=== PATIENT | female | born 1970 | race Caucasian/White ===

== ENCOUNTER 2020-05-11 16:24 | Outpatient (REF) | payer OTHER, SELFPAY ==
--- NOTE | 2020-05-11 16:35 | XR_ITS ---
EXAMINATION: XR KNEE, RIGHT CLINICAL INFORMATION: Knee pain. Joint effusion. COMPARISON: None TECHNIQUE: Four views of the right knee. FINDINGS: There is a large joint effusion with suprapatellar fossa. No osseous abnormality. No fracture. The patellofemoral the femoral tibial joints are normal. There is no soft tissue calcification. IMPRESSION: Large suprapatellar joint effusion. There is no acute osseous abnormality.
== END 2020-05-11 16:25 | disposition home or self-care (01) ==
LOC: HO.HMGCX 16:24
PROVIDERS: PCP Nurse Practitioner Family; Visit Provider Nurse Practitioner Family
DX: M25.461 Effusion, right knee (principal)
CPT/HCPCS: 73564

== ENCOUNTER 2020-06-08 15:39 | Outpatient (REF) | payer OTHER, SELFPAY ==
--- NOTE | 2020-06-08 15:43 | MR_ITS ---
EXAMINATION: MR KNEE WITHOUT CONTRAST, RIGHT CLINICAL INFORMATION: Pain in the right knee. COMPARISON: Radiograph dated 05/11/2020 TECHNIQUE: MRI of the knee without contrast was performed using routine sequences on a high-field scanner. FINDINGS: MENISCI: Medial Meniscus: There is a complex flap tear of the posterior horn at the posterior root insertion, a high-grade radial component spares only a few attenuated peripheral fibers. The stump flap fragment is displaced cephalad. A horizontal component extends within the posterior horn toward the meniscal body and is confluent with a separate oblique longitudinal/radial component at the junction of the posterior horn and body. The meniscal body is partially extruded medially. Lateral Meniscus: Intact. LIGAMENTS: Cruciate: ACL appears chronically torn. The stump fragments are largely resorbed. PCL is intact. Collateral: Edema signal around the MCL is likely reactive to the underlying meniscal abnormality. A grade 1 sprain is less likely. LCL complex is normal. EXTENSOR MECHANISM: Insall-Salvati ratio is 0.8. Quadriceps and patellar tendons are intact. ARTICULAR CARTILAGE/BONE: Patellofemoral Compartment: Minimal chondral surface irregularity is present at the medial patellar facet and median ridge. Minimal chondral fissuring at the inferior aspect of the medial trochlear facet. Medial Compartment: There is qzqb-ew-zzkiytes chondral thinning at the medial tibial plateau at its medial half with near full-thickness chondral fissuring and underlying subchondral edema. More mild chondral thinning is present at the posterior weightbearing surface of the medial femoral condyle. Lateral Compartment: Normal. JOINT FLUID AND BURSAE: Large joint effusion. Small Mi's cyst. Mild pes anserine bursitis. A small amount of debris is present in the popliteus tendon sheath. MR/MR knee RT wo con IMPRESSION: 1. Complex flap tear of the posterior horn and body of the medial meniscus. 2. A vwwxhjff-so-tibnpph, complete tear of the ACL. 3. Mild medial compartment osteoarthritis. Minimal patellofemoral compartment osteoarthritis. 4. Large effusion and small Mi's cyst.
== END 2020-06-08 15:40 | disposition home or self-care (01) ==
LOC: HO.MRI 15:39
PROVIDERS: Visit Provider Nurse Practitioner Family
DX: M25.561 Pain in right knee (principal); M25.461 Effusion, right knee
CPT/HCPCS: 73721

== ENCOUNTER → 2020-06-10 14:03 | Outpatient (BNVA) | payer OTHER, SELFPAY | PROVIDERS: Visit Provider Orthopaedic Surgery | DX: S83.249A Other tear of medial meniscus, current injury, unspecified knee, initial encounter (principal); M23.8X9 Other internal derangements of unspecified knee; M25.561 Pain in right knee | CPT/HCPCS: 20610; 99202; J1100 ==

== ENCOUNTER 2020-07-14 06:30 | Day surgery (SDC) | payer OTHER, SELFPAY ==
[2020-07-07 19:46] VITALS: BMI 32.3
--- NOTE | 2020-07-13 10:14 | P.CONAN_ITS ---
Documented by User: Kassi Bowles 07/13/20 10:15 HPI - Anesthesia Eval Consult details Narrative: 49yo F for Knee Arthroscopy [facility] Past Medical History Medical History (Updated 07/14/20 @ 11:07 by Zakiya Nicole) Arthritis Elevated liver enzymes EtOH dependence GERD (gastroesophageal reflux disease) Heart murmur Increased BMI Medial meniscus tear Old complete ACL tear Snoring Family History Family History Father No problems noted. Mother Unknown family medical history Sister No problems noted. Sister No problems noted. Sister No problems noted. Daughter No problems noted. 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 Meds Allergies Allergy/AdvReac Type Severity Reaction Status Date / Time No Known Allergies Allergy Verified 07/13/20 09:08 [No Known Allergies*] Home Medications Medication Instructions Recorded Confirmed Type alclometasone [Aclovate] 1 appl TOPICAL BID 07/07/20 07/13/20 History clobetasol 1 appl TOPICAL 2XW 07/07/20 07/13/20 History etanercept [Enbrel] 50 mg SUBCUT 2XW 07/07/20 07/13/20 History Exam Exam Date and Time: July 13, 2020 1014 Height,Weight and Vital Signs: Height 5 ft 6 in Weight 90.718 kg Assessment and Plan Assessment Anesthesia Assessment: Chart Reviewed Documented by User: Zakiya Nicole 07/14/20 11:08 [facility] Past Medical History Medical History (Updated 07/14/20 @ 11:07 by Zakiya Nicole) Arthritis Elevated liver enzymes EtOH dependence GERD (gastroesophageal reflux disease) Heart murmur Increased BMI Medial meniscus tear Old complete ACL tear Snoring Family History Family History Father No problems noted. Mother Unknown family medical history Sister No problems noted. Sister No problems noted. Sister No problems noted. Daughter No problems noted. 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 Meds Allergies Allergy/AdvReac Type Severity Reaction Status Date / Time No Known Allergies Allergy Verified 07/13/20 09:08 [No Known Allergies*] Home Medications Medication Instructions Recorded Confirmed Type alclometasone [Aclovate] 1 appl TOPICAL BID 07/07/20 07/13/20 History clobetasol 1 appl TOPICAL 2XW 07/07/20 07/13/20 History etanercept [Enbrel] 50 mg SUBCUT 2XW 07/07/20 07/13/20 History Exam Height,Weight and Vital Signs: Vital Signs Temp Pulse Resp BP Pulse Ox 07/14/20 07:39 98.2 F 48 L 20 126/69 100 Pertinent Lab Results Pertinent Lab Results: Lab Results 07/14/20 Range/Units 07:16 Urine Test NEGATIVE (NEGATIVE) Airway Mallampati Class: II TM Dist: >3cm Neck ROM: Full Heart: RRR +?murmur Lungs: CTAB Assessment and Plan Assessment Anesthesia Assessment: Anesthesia Plan Discussed and Chart Reviewed Final Anesthetic Review NPO: Yes ASA Class: II Final Preanesthetic Review: No Changes in Pt Med Stat, Meds/Allgs Chart Reviewed, Consent Obtained/Reviewed and Anes Risks/Benef Reviewed Patient Risk: Low Procedure Risk: Low Assessment/Block/Sedation in SS: Assess/Block/Sedation-SS Anesthetic Plan Anesthetic Plan: GA Disposition: Standard PACU
[2020-07-14] VITALS (9 sets, daily range): BP systolic 126–142; BP diastolic 69–87; PULSE 47–78; RESP 14–20; TEMP 36.6–36.8; O2SAT 90–100
[2020-07-14 07:28] LABS: UPreg QC Valid YES; Urine Pregnancy NEGATIVE (NEGATIVE)
[2020-07-14] MEDS: Lactated Ringers 1,000 ML 100 ML IVCONT (07:58)
--- NOTE | 2020-07-14 12:52 | HO.POSTANES ---
Post Anesthesia Evaluation Post Anesthesia Evaluation Vital Signs: Vital Signs Temp Pulse Resp BP Pulse Ox 07/14/20 11:59 97.9 F 47 L 131/75 95 07/14/20 11:44 52 137/76 95 07/14/20 11:29 56 16 137/75 95 07/14/20 11:14 50 16 142/73 H 90 L 07/14/20 11:05 54 16 128/72 94 07/14/20 11:00 67 16 131/71 94 07/14/20 10:55 58 16 138/87 93 07/14/20 10:50 97.9 F 78 14 142/87 H 92 07/14/20 07:39 98.2 F 48 L 20 126/69 100 in discharge HR 60, O2 sat=96% RA Anesthesia: General LMA Mental Status: Awake Pain Control: Satisfactory Nausea/Vomiting: None Hydration: Adequate Anesthesia-Related Issues: No Anes. Related Issues
--- NOTE | 2020-07-15 14:10 | OP_ITS ---
SURGEON: Dony Quintanilla MD INDICATIONS: This is a 49-year-old woman with a chronic ACL tear, who likely injured her MCL several months ago. She complained of medial knee pain and prior to her most recent injury, had been functioning well without an ACL with no giving way. She was consented to undergo knee arthroscopy for medial meniscectomy. We did discuss ACL reconstruction, but deferred on that at this time as per patient preference and concerns over postoperative physical therapy. PREOPERATIVE DIAGNOSIS: POSTOPERATIVE DIAGNOSIS: PROCEDURE PERFORMED: Right knee partial medial meniscectomy. ESTIMATED BLOOD LOSS: None. COMPLICATIONS: None. ANESTHESIA: General and local. ASSISTANTS: None. SPECIMENS: PREOPERATIVE DIAGNOSES: Right knee medial meniscus tear, right knee ACL tear. POSTOPERATIVE DIAGNOSES: Right knee medial meniscus tear, right knee ACL tear. FLUIDS: 500. PROCEDURE IN DETAIL: The patient was brought to the operating room, placed supine on the arthroscopic table and prepped and draped in standard sterile fashion. Time-out was called to identify proper site, proper procedure, proper surgeon. IV antibiotics per weight was administered. I began by exsanguinating the limb and insufflating tourniquet to 300 mmHg. I then made a standard anterolateral stab incision and placed my blunt trocar atraumatically into the patellofemoral joint. I then insufflated the joint and began my diagnostic arthroscopy. She had some very mild grade 1 changes of the patella and trochlea. The gutters were clean. I descended into the medial compartment, where I made my medial portal under direct visualization. She had a complex posteromedial radial meniscus tear with loose flaps. I used a combination of biter and shaver to debride this down to stable edges. This did remove about 40% to 50% of the meniscal volume. I used a probe to assess the stability and finally examined the cartilaginous surfaces. She had grade 2 changes of the medial femoral condyle with some scattered grade 3 changes. There was grade 1 changes of medial tibial plateau. ACL was not present. I debrided the stump, but this appeared chronic and then assessed the lateral compartment, which was essentially pristine. All instrumentation was then removed. Skin glue was used to close the portals and I injected 30 mL of 0.25% Marcaine with epinephrine into the knee and the soft tissue portals. The patient was then placed in sterile dressing, extubated, and brought to recovery room in stable condition. There were no known complications. MD CHRIS Dorman/PRO / [id number]
== END 2020-07-14 23:59 ==
LOC: HO.SSS 06:31
PROVIDERS: Nurse Practitioner; Visit Provider Orthopaedic Surgery
PROC: (CPT 29870; principal; 2020-07-14 08:30)
DX: S83.231A Complex tear of medial meniscus, current injury, right knee, initial encounter (principal); M23.8X1 Other internal derangements of right knee; X50.1XXA Overexertion from prolonged static or awkward postures, initial encounter; Y93.9 Activity, unspecified; Y92.9 Unspecified place or not applicable; Y99.8 Other external cause status; Z91.81 History of falling; F10.20 Alcohol dependence, uncomplicated; K21.9 Gastro-esophageal reflux disease without esophagitis; Z79.899 Other long term (current) drug therapy
CPT/HCPCS: 29881; 81025; J0171; J0690; J1100; J1170; J2250; J2405; J3010

== ENCOUNTER → 2020-07-26 12:04 | Outpatient (BNVA) | payer OTHER, SELFPAY | PROVIDERS: Visit Provider Orthopaedic Surgery | DX: S83.249A Other tear of medial meniscus, current injury, unspecified knee, initial encounter (principal); M23.8X9 Other internal derangements of unspecified knee | CPT/HCPCS: 99212 ==

== ENCOUNTER 2020-08-03 08:41 | Outpatient (REF) | payer OTHER, SELFPAY ==
[2020-08-03 11:55] LABS: Alanine Aminotransferase 70 U/L (0-31); Albumin Level 4.5 g/dL (3.5-5.0); Alkaline Phosphatase 74 U/L (39-117); Anion Gap 18 (12-20); Aspartate Amino Transferase 76 U/L (5-31); Bilirubin Total 0.7 mg/dL (0.0-1.0); Blood Urea Nitrogen 11 mg/dL (9-16); Calcium 9.3 mg/dL (8.4-10.2); Carbon Dioxide 23 mmol/L (22-29); Chloride 100 mmol/L (96-108); Cholesterol 280 mg/dL; Estimated Glomerular Filt Rate > 60; Glucose Fasting 103 mg/dL (60-99); HDL Cholesterol 71 mg/dL; LDL Cholesterol Calculated 131 mg/dl; Potassium 3.8 mmol/l (3.3-5.1); Sodium 137 mmol/L (135-145); Total Protein 7.7 g/dL (6.5-8.0); Triglycerides 394 mg/dL
[2020-08-03 12:00] LABS: TSH reflex Free T4 5.05 mIU/mL (0.32-4.0)
[2020-08-03 12:49] LABS: Free T4 (Free Thyroxine) 0.92 ng/dL (0.71-1.85)
== END 2020-08-03 08:42 | disposition home or self-care (01) ==
LOC: HO.HMGCLDS 08:41
PROVIDERS: PCP Nurse Practitioner Family; Visit Provider Nurse Practitioner Family
DX: Z00.00 Encounter for general adult medical examination without abnormal findings (principal)
CPT/HCPCS: 36415; 80053; 80061; 84439; 84443

== ENCOUNTER 2020-08-11 08:02 | Outpatient (REF) | payer OTHER, SELFPAY ==
--- NOTE | 2020-08-11 08:07 | MM_ITS ---
EXAMINATION: MM SCREENING DIGITAL BREAST TOMOSYNTHESIS, BILATERAL CLINICAL INFORMATION: Screening. Asymptomatic. The lifetime risk of breast cancer based on the Tyrer-Cuzick Model is 11%. COMPARISON: Mammography: 08/06/2019, 06/15/2017, 02/06/2014 TECHNIQUE: Digital breast tomosynthesis is performed in both the craniocaudal and mediolateral oblique views along with computer-aided detection (CAD). Synthesized 2D images are generated from the tomosynthesis. Additional left MLO view is provided. FINDINGS: There are scattered areas of fibroglandular density (ACR BI-RADS breast composition Category b). There is a oval nodular asymmetry mid outer right breast approximately 6 x 4 mm breast appreciated on CC tomography. There is no visible correlate on MLO view. Finding not seen with certainty on prior studies. Patient will be recalled for additional imaging. The remainder of the bilateral breasts are unremarkable with no significant mass, architectural abnormality, developing density, or abnormal calcifications. The skin contours are smooth. MM/MM tomosynthesis screening BI IMPRESSION: 1. Right: Smooth nodular asymmetry mid outer right breast on CC view not seen with certainty on prior studies. 2. Left: No mammographic evidence of malignancy. ASSESSMENT: BI-RADS 0: Incomplete - Need Additional Imaging Evaluation RECOMMENDATION: 1. Additional views of the right breast (3-D spot CC, 3-D ML). 2. Targeted ultrasound if warranted after review of the additional views. 3. Radiology department staff will contact the patient for additional imaging. This patient's information was entered into a reminder system with a target due date for their next mammogram.
== END 2020-08-11 08:03 | disposition home or self-care (01) ==
LOC: HO.MAMMO 08:02
PROVIDERS: PCP Nurse Practitioner Family; Visit Provider Nurse Practitioner Family
DX: Z12.31 Encounter for screening mammogram for malignant neoplasm of breast (principal)
CPT/HCPCS: 77063; 77067

== ENCOUNTER 2020-08-11 09:51 | Outpatient (REF) | payer OTHER, SELFPAY ==
--- NOTE | 2020-08-11 09:54 | US_ITS ---
EXAMINATION: US ABDOMEN COMPLETE CLINICAL INFORMATION: Abnormal levels of other serum enzymes. COMPARISON: Ultrasound abdomen complete 03/27/2017 TECHNIQUE: Real-time imaging of the abdominal viscera. FINDINGS: PANCREAS: Normal. ABDOMINAL AORTA: The proximal, mid, and distal segments are normal in caliber. INFERIOR VENA CAVA: Visualized portions are normal. LIVER: There is diffuse liver increased echogenicity with areas of focal fatty sparing adjacent to gallbladder. There is normal hepatic contour and mild enlarged size. There is no intrahepatic biliary duct dilatation seen. The right hepatic lobe measures 20.0 cm and the left hepatic lobe measures 16.1 cm. GALLBLADDER: Normal. The gallbladder is physiologically distended without evidence of stones, sludge, polyps, wall thickening or pericholecystic fluid. COMMON BILE DUCT: Normal in caliber measuring 0.3 cm in diameter. RIGHT KIDNEY: Normal. No hydronephrosis. No renal calculi or focal parenchymal lesions. The kidney measures 11.5 cm in maximum dimension. LEFT KIDNEY: Normal. No hydronephrosis. No renal calculi or focal parenchymal lesions. The kidney measures 11.7 cm in maximum dimension. SPLEEN: Normal. The spleen measures 10.2 cm in maximum dimension. FREE FLUID: None. US/US abdomen complete IMPRESSION: Diffuse hepatic steatosis with areas of focal fatty sparing. Mild hepatomegaly. The rest of the abdominal ultrasound is unremarkable.
== END 2020-08-11 09:52 | disposition home or self-care (01) ==
LOC: HO.HMGCX 09:51
PROVIDERS: PCP Nurse Practitioner Family; Visit Provider Nurse Practitioner Family
DX: R74.8 Abnormal levels of other serum enzymes (principal)
CPT/HCPCS: 76700

== ENCOUNTER → 2020-08-16 14:47 | Outpatient (REF) | payer OTHER, SELFPAY ==
--- NOTE | 2020-08-16 14:50 | CA_ITS ---
Transthoracic Echocardiogram Patient (Last, First, Middle): Deisy Marie, Gender: Female Date of : 1970 Age: 49 Procedure Date: 08/16/2020 Procedure Type: Transthoracic Echocardiogram Location: OP Height: 167.64 cm Weight: 90.72 kg BSA: 2.00 m2 Heart Rate: bpm BP: 126 / 80 mmHg Dietetics Director: Referring MD: Javi Gerardo [facility] Symptoms: R01.1 - Cardiac murmur, unspecified Study Quality: Fair ECG Rhythm: Sinus Conclusions: - The left ventricular systolic function is normal. The visually estimated ejection fraction is between 65-70%. - No obvious valvular pathology seen on this study. Findings Left Ventricle Normal left ventricular cavity size. There is normal left ventricular wall thickness. The left ventricular systolic function is normal. The visually estimated ejection fraction is between 65-70%. There is no evidence of regional wall motion abnormalities. Diastolic function is normal for age. Right Ventricle Normal right ventricular cavity size and systolic function. Atria Both atria are normal in size. Aortic Valve The aortic valve was not well visualized. There is no aortic valve stenosis. There is no aortic valve regurgitation. Mitral Valve The mitral valve appears normal. There is no mitral valve regurgitation. There is no mitral valve stenosis. Pulmonic Valve The pulmonic valve was not well visualized. Tricuspid Valve There is trace tricuspid valve regurgitation. The pulmonary artery systolic pressure is normal. Great Vessels The aortic annulus, sinuses of valsalva, and asc aorta are normal in size. Venous The inferior vena cava is normal in size and collapses greater than 50% with inspiration. Pericardium/Pleural There is no evidence of pericardial effusion. Prior Study Comparison No prior study available for comparison. Recommendations, Care & Conclusions No obvious valvular pathology seen on this study. Measurements 2D Linear Measurements IVSd: 0.92 0.6-0.9/0.6-1.0 cm LVIDd: 5.14 3.9-5.3/4.2-5.9 cm LVIDd Index: 2.57 2.4-3.2/2.2-3.1 cm/m2 LVIDs: 3.15 2.0-3.6 cm LVPWd: 0.88 0.7-1.1 cm Ao Root: 2.70 2.1-3.5 cm LA Diam: 3.90 2.7-3.8/3.0-4.0 cm LAIDs Index: 1.95 1.5-2.3 cm/m2 LV Mass: 205.80 67-162/88-224 g LV Mass Index: 102.90 43-95/49-115 g/m2 LVOT Diam: 2.00 3.0+(-)1.3 cm Mitral Valve MV Pk E: 0.92 MV PK A: 0.77 MV Decel Time: 216.00 E/A: 1.20 E'Lateral: 9.96 E'Medial: 7.11 E/E' Med: 13.00 E/E' Lat: 9.30 PHT: 63.00 MVA PHT: 3.49 Decel [place]: 4.26 Aortic Valve AoV Pk Nabeel: 1.89 AoV Mn Nabeel: 1.20 AoV VTI: 0.36 AoV Pk Grad: 14.00 Aov Mn Grad: 7.00 DMITRY Cont.VTI: 2.51 LVOT LVOT Pk Nabeel: 1.39 LVOT Mn Nabeel: 0.86 LVOT VTI: 0.29 LVOT Pk Grad: 8.00 LVOT Mn Grad: 4.00 LVOT Diam: 2.00 LVOT Area: 3.14 Diastolic Function MV Pk E: 0.92 MV Pk A: 0.77 E/A: 1.20 E'Medial: 7.11 E/E' Med: 13.00 E' Laterial: 9.96 E/E' Lat: 9.30 Tricuspid Valve TR Pk Nabeel: 1.57 TR Pk Grad: 10.00 RA Press: 3.00 RVSP: 13.00 Great Vessels Aorta Ao Root-2D: 2.70 2.0-3.7 cm Ao Asc: 3.30 2.1-3.4 cm Pulmonary Valve PV Pk Nabeel: 1.29 Peak PV Grad: 7.00 Updated in Other Vendor System with Status of Final Sonny Casper MD electronically signed on 08/16/2020 4:58:18 PM with status of Final
== END ==
LOC: HO.CARD 14:47
PROVIDERS: PCP Nurse Practitioner Family; Visit Provider Nurse Practitioner Family
DX: R01.1 Cardiac murmur, unspecified (principal)
CPT/HCPCS: 93306

== ENCOUNTER 2020-08-19 09:25 | Outpatient (REF) | payer OTHER, SELFPAY ==
--- NOTE | 2020-08-19 | MM_ITS ---
EXAMINATION: MM DIAGNOSTIC DIGITAL BREAST TOMOSYNTHESIS, RIGHT US TARGETED RIGHT BREAST ULTRASOUND CLINICAL INFORMATION: Rounded density upper outer aspect of the right breast containing calcification. COMPARISON: Mammography: 08/11/2020 and studies dating back to 02/06/2014. TECHNIQUE: Digital breast tomosynthesis is performed. 2D images are generated from the tomosynthesis. The following views are obtained: Full-field 90-degree mediolateral view of the right breast and spot compression view in craniocaudal projection. Targeted right breast ultrasound. FINDINGS: There are scattered areas of fibroglandular density (ACR BI-RADS breast composition Category b). Additional views demonstrate persistence of an approximately 5 x 4 mm circumscribed density containing a calcification in the upper outer aspect of the right breast. This lies approximately 7 to 8 cm from the nipple. Targeted right breast ultrasound demonstrates at the 10 o'clock position, approximately 7 cm from the nipple a cyst measuring approximately 5 x 3 mm in size containing a single calcification. No internal vascularity is present. The lesion is anechoic other than for the single calcification. Results are discussed with the patient at time of visit. MM/MM tomosynthesis added views R IMPRESSION: Right breast density corresponds to a cyst containing a single calcification. ASSESSMENT: BI-RADS 2: Benign. RECOMMENDATION: Routine annual mammography screening due in 12 months. This patient's information was entered into a reminder system with a target due date for their next mammogram.
--- NOTE | 2020-08-19 | US_ITS ---
EXAMINATION: US DIAGNOSTIC ULTRASOUND BREAST, RIGHT CLINICAL INFORMATION: Right breast density with calcification. COMPARISON: Mammography of 08/11/2020 and studies dating back to 02/06/2014. TECHNIQUE: Ultrasound of the breast is performed with real-time riley scale imaging and color Doppler. FINDINGS: Targeted right breast ultrasound demonstrates at the 10 o'clock position, approximately 7 cm from the nipple a cyst measuring approximately 5 x 3 mm in size containing a single calcification. No internal vascularity is present. The lesion is anechoic other than for the single calcification. Results are discussed with the patient at time of visit. US/US breast RT limited IMPRESSION: Right breast density corresponds to a cyst containing a single calcification. ASSESSMENT: BI-RADS 2: Benign. RECOMMENDATION: Routine annual mammography screening due in 12 months. This patient's information was entered into a reminder system with a target due date for their next mammogram.
== END 2020-08-19 09:26 | disposition home or self-care (01) ==
LOC: HO.MAMMO 09:25
PROVIDERS: PCP Nurse Practitioner Family; Visit Provider Nurse Practitioner Family
DX: N60.01 Solitary cyst of right breast (principal)
CPT/HCPCS: 76642; 77061; 77065

== ENCOUNTER → 2020-08-30 08:58 | Outpatient (BNVA) | payer OTHER, SELFPAY | PROVIDERS: PCP Nurse Practitioner Family; Visit Provider Orthopaedic Surgery | DX: S83.249D Other tear of medial meniscus, current injury, unspecified knee, subsequent encounter (principal) | CPT/HCPCS: 99212 ==

== ENCOUNTER 2020-09-24 09:00 | Outpatient (RCR) | payer OTHER, SELFPAY ==
--- NOTE | 2020-11-11 13:18 | MHC.PT.DC ---
[facility] [place] Office [place] Office [place] Office [address] Jelly Redmond [address] [facility] [phone] F: [phone] F: [phone] F: [phone] F: [phone] Physical Therapy Discharge Report Diagnosis: s/p meniscectomy Date of Surgery: 07/14/20 Date of Evaluation: 07/27/20 Date of Discharge: 10/17/20 Treatments to Date: 13 Cancellations to Date: 0 No Shows to Date: 0 Discharge Status: Achieved Goals Improved Function Independent with [facility] Discharge Summary: Pt progressed well over the course of skilled PT making progress on impairments and functional limitations resulting in an improved quality of life. Pt is I with [facility] and appropriate to d/c to [facility] at this time. Electronically signed by: Randy Turner, PT Please sign and return to therapist. Thank you for your referral.
== END 2020-11-11 13:18 | disposition home or self-care (01) ==
LOC: HO.PTCHIC 09:00
PROVIDERS: PCP Nurse Practitioner Family; Visit Provider Orthopaedic Surgery
DX: S83.249D Other tear of medial meniscus, current injury, unspecified knee, subsequent encounter (principal)
CPT/HCPCS: 97110; 97112; 97162; 97530

== ENCOUNTER 2021-03-23 08:36 | Outpatient (REF) | payer OTHER, SELFPAY ==
--- NOTE | 2021-03-23 08:42 | EMG_ITS ---
This is a 50-year-old woman with a 3-year history of right upper extremity pain, neck pain, and pain radiating to the right deltoid area. She is currently on no medication for this. PHYSICAL EXAMINATION: On examination, she is alert and oriented, appears very anxious and crying. Cranial nerves II through XII are normal. She has been on neck movements. Reflexes symmetrical. IMPRESSION: Rule out cervical radiculopathy. Nerve conduction study: Normal electrodiagnostic study of the right upper extremity with no evidence of carpal tunnel syndrome or nerve entrapment. EMG of the right C5 through T1 innervated muscles suggestive of mild right lower chronic cervical radiculopathy. MD NICOLE Schumacher/PRO / [id number]
== END 2021-03-23 08:37 | disposition home or self-care (01) ==
LOC: HO.NEURO 08:36
PROVIDERS: Visit Provider Hospitalist
DX: M54.12 Radiculopathy, cervical region (principal)
CPT/HCPCS: 95886; 95910

== ENCOUNTER 2021-05-16 16:36 | Outpatient (REF) | payer OTHER, SELFPAY ==
--- NOTE | ~2021-05-16 | MR_ITS ---
EXAMINATION: MR CERVICAL SPINE WITHOUT CONTRAST CLINICAL INFORMATION: Radiculopathy, cervical region. COMPARISON: None available. TECHNIQUE: MRI of the cervical spine was performed using routine sequences without contrast. FINDINGS: The cervical vertebral bodies maintain normal heights and alignment. There is minimal anterolisthesis of C3 on C4 and C4 on C5. There is moderate to severe disc height loss at C5-C6 and C6-C7. Mild endplate edema is seen at C6-C7. There is significant marrow edema about the left-sided C3-C4 facets and within the periarticular tissues. The cervical cord signal appears normal allowing for minimal prominence of the central ependymal canal. The imaged portions of the intracranial contents appear normal. The extraspinal soft tissues appear normal. SPINAL LEVELS: C2-C3: No posterior disc abnormality. Moderate left facet arthropathy. No spinal canal or neural foraminal stenosis. C3-C4: No posterior disc abnormality. Severe left facet arthropathy with marrow and periarticular edema. No spinal canal stenosis. Mild left neural foraminal stenosis. C4-C5: Mild disc bulging. No spinal canal or neural foraminal stenosis. C5-C6: Disc bulging with left more than right uncovertebral hypertrophy resulting in severe left and [id number] right neural foraminal stenosis but no spinal canal stenosis. C6-C7: Disc osteophyte complex with uncovertebral hypertrophy resulting in severe bilateral neural foraminal stenosis. No spinal canal stenosis. C7-T1: No posterior disc abnormality. No spinal canal or neural foraminal stenosis. MR/MR cervical spine wo con IMPRESSION: Severe left facet arthropathy at C3-C4 with bone marrow edema and subjacent soft tissue inflammation. At C5-C6 there is severe left neural foraminal stenosis. At C6-C7 there is severe bilateral neural foraminal stenosis.
== END 2021-05-16 16:37 | disposition home or self-care (01) ==
LOC: HO.MRI 16:36
PROVIDERS: Visit Provider Nurse Practitioner Family
DX: M54.12 Radiculopathy, cervical region (principal); R94.131 Abnormal electromyogram [EMG]
CPT/HCPCS: 72141

== ENCOUNTER 2021-07-29 12:16 | Outpatient (REF) | payer OTHER, SELFPAY ==
[2021-07-29 15:23] LABS: MANUAL DIFF FLAG NO
[2021-07-29 15:25] LABS: Basophils Percent Auto 0.5 % (0-2); Eosinophils Absolute Auto 0.1 X10*3/uL (0.0-0.4); Eosinophils Percent Auto 1.4 % (0-4); Hematocrit 44.2 % (37.0-47.0); Hemoglobin 14.6 g/dl (12.0-16.0); Imm Gran Abs Auto 0.02 X10*3/uL (0.00-0.03); Imm Gran Pct Auto 0.3 % (0.0-0.4); Lymphocytes Absolute Auto 2.3 X10*3/uL (1.2-4.9); Mean Corpuscular Hemoglobin 30.2 pg (27.0-33.0); Mean Corpuscular Volume 91.3 fL (80.0-98.0); Mean Platelet Volume 10.9 fL (9.4-12.3); Monocytes Absolute Auto 0.5 X10*3/uL (0.1-1.2); Monocytes Percent Auto 9.3 % (2-11); Neutrophils Absolute Auto 2.9 x10*3/uL (2.0-8.3); Neutrophils Percent Auto 49.5 % (45-73); Platelet Count 269 X10*3/uL (160-400); Red Blood Count 4.84 X10*6/uL (4.20-5.50); Red Cell Distribution Width 12.8 % (11.0-16.0); White Blood Count 5.8 X10*3/uL (4.8-10.8)
[2021-07-29 15:44] LABS: Alanine Aminotransferase 25 U/L (0-31); Albumin Level 4.6 g/dL (3.5-5.0); Alkaline Phosphatase 78 U/L (39-117); Anion Gap 13 (12-20); Aspartate Amino Transferase 24 U/L (5-31); Bilirubin Total 0.5 mg/dL (0.0-1.0); Blood Urea Nitrogen 14 mg/dL (9-16); Calcium 9.7 mg/dL (8.4-10.2); Carbon Dioxide 27 mmol/L (22-29); Chloride 101 mmol/L (96-108); Estimated Glomerular Filt Rate > 60; Glucose Random 82 mg/dL (60-115); Potassium 4.1 mmol/L (3.3-5.1); Sodium 137 mmol/L (135-145); Total Protein 8.1 g/dL (6.5-8.0)
== END 2021-07-29 12:17 | disposition home or self-care (01) ==
LOC: HO.HMGCLDS 12:16
PROVIDERS: PCP Nurse Practitioner Family; Visit Provider Physician Assistant Medical
DX: L40.0 Psoriasis vulgaris (principal); L30.8 Other specified dermatitis; Z79.899 Other long term (current) drug therapy
CPT/HCPCS: 36415; 80053; 85025

== ENCOUNTER 2021-12-07 06:04 | Outpatient (REF) | payer OTHER, SELFPAY ==
[2021-12-07 11:40] LABS: MANUAL DIFF FLAG NO
[2021-12-07 11:47] LABS: Basophils Percent Auto 0.6 % (0-2); Eosinophils Absolute Auto 0.1 X10*3/uL (0.0-0.4); Eosinophils Percent Auto 2.7 % (0-4); Hematocrit 42.2 % (37.0-47.0); Hemoglobin 13.4 g/dl (12.0-16.0); Imm Gran Abs Auto 0.01 X10*3/uL (0.00-0.03); Imm Gran Pct Auto 0.2 % (0.0-0.4); Lymphocytes Absolute Auto 1.9 X10*3/uL (1.2-4.9); Lymphocytes Percent Auto 36.3 % (20-40); Mean Corpuscular HGB Conc 31.8 g/dl (31.0-35.0); Mean Corpuscular Hemoglobin 28.8 pg (27.0-33.0); Mean Corpuscular Volume 90.8 fL (80.0-98.0); Monocytes Absolute Auto 0.6 X10*3/uL (0.1-1.2); Monocytes Percent Auto 12.1 % (2-11); Neutrophils Absolute Auto 2.5 x10*3/uL (2.0-8.3); Neutrophils Percent Auto 48.1 % (45-73); Platelet Count 289 X10*3/uL (160-400); Red Blood Count 4.65 X10*6/uL (4.20-5.50); Red Cell Distribution Width 12.9 % (11.0-16.0); White Blood Count 5.1 X10*3/uL (4.8-10.8)
[2021-12-07 11:52] LABS: Appearance Urine HAZY; Color Urine YELLOW; Glucose Urine UA NEG (NEG); Leukocyte Esterase Urine NEG (NEG); Nitrite Urine NEG (NEG); Specific Gravity - Urine >= 1.030 (1.005-1.025); Urine Blood NEG (NEG); Urine Ketones NEG (NEG); Urine Protein NEG (NEG-TRACE)
[2021-12-07 12:16] LABS: TSH reflex Free T4 4.28 uIU/mL (0.32-4.0)
[2021-12-07 12:17] LABS: Alanine Aminotransferase 29 U/L (0-31); Albumin Level 4.1 g/dL (3.5-5.0); Alkaline Phosphatase 70 U/L (39-117); Anion Gap 11 (12-20); Aspartate Amino Transferase 30 U/L (5-31); Bilirubin Total 0.5 mg/dL (0.0-1.0); Blood Urea Nitrogen 16 mg/dL (9-16); Calcium 9.6 mg/dL (8.4-10.2); Carbon Dioxide 27 mmol/L (22-29); Chloride 104 mmol/L (96-108); Cholesterol 212 mg/dL; Estimated Glomerular Filt Rate > 60; Glucose Fasting 108 mg/dL (60-99); HDL Cholesterol 59 mg/dL; LDL Cholesterol Calculated 127 mg/dl; Potassium 4.4 mmol/L (3.3-5.1); Sodium 138 mmol/L (135-145); Total Protein 6.9 g/dL (6.5-8.0); Triglycerides 133 mg/dL
[2021-12-07 13:10] LABS: Free T4 (Free Thyroxine) 0.87 ng/dL (0.71-1.85)
[2021-12-09 15:01] LABS: TS Negative Control Passed; TS Panel A 0; TS Panel B 0; TS Positive Control Passed; TSpotTB Negative (Negative)
== END 2021-12-07 06:05 | disposition home or self-care (01) ==
LOC: HO.HMGCLDS 06:04
PROVIDERS: PCP Nurse Practitioner Family; Visit Provider Nurse Practitioner Family
DX: Z00.00 Encounter for general adult medical examination without abnormal findings (principal); Z11.1 Encounter for screening for respiratory tuberculosis
CPT/HCPCS: 36415; 80053; 80061; 81003; 84439; 84443; 85025; 86481

== ENCOUNTER 2021-12-09 15:40 | Outpatient (REF) | payer OTHER, SELFPAY ==
--- NOTE | ~2021-12-09 | MM_ITS ---
EXAMINATION: MM SCREENING DIGITAL BREAST TOMOSYNTHESIS, BILATERAL CLINICAL INFORMATION: Screening. Asymptomatic. The lifetime risk of breast cancer based on the Tyrer-Cuzick Model is 12%. COMPARISON: Mammography: 08/19/2020, 08/11/2020, 08/06/2019, 06/15/2017, 02/06/2014; targeted right breast ultrasound 08/19/2020 TECHNIQUE: Digital breast tomosynthesis is performed in both the craniocaudal and mediolateral oblique views along with computer-aided detection (CAD). Synthesized 2D images are generated from the tomosynthesis. Additional right MLO view is provided. FINDINGS: There are scattered areas of fibroglandular density (ACR BI-RADS breast composition Category b). The left breast is unremarkable. There is no interval mass or architectural abnormality or abnormal calcifications. The bilateral axilla and skin contours are normal. There is a benign oval coarse calcification mid upper outer right breast in area of prior small cyst. There is no interval mass or architectural abnormality or developing density. The posterior upper outer right breast has some fine calcifications, possibly vascular along with pseudo calcification from digital processing artifact on synthesized images. This is unrelated to area of prior recall. Patient will be recalled for additional imaging. MM/MM tomosynthesis screening BI IMPRESSION: Right: -Fine calcifications upper outer quadrant, possibly vascular along with additional superimposed pseudo calcification from digital processing artifact on synthesized images. Left: -No mammographic evidence of malignancy. ASSESSMENT: BI-RADS 0: Incomplete - Need Additional Imaging Evaluation RECOMMENDATION: 1. Additional views of the right breast (magnification CC, magnification ML). 2. Radiology department staff will contact the patient for additional imaging. This patient's information was entered into a reminder system with a target due date for their next mammogram.
== END 2021-12-09 15:41 | disposition home or self-care (01) ==
LOC: HO.MAMMO 15:40
PROVIDERS: PCP Nurse Practitioner Family; Visit Provider Nurse Practitioner Family
DX: Z12.31 Encounter for screening mammogram for malignant neoplasm of breast (principal)
CPT/HCPCS: 77063; 77067

== ENCOUNTER 2021-12-20 13:53 | Outpatient (REF) | payer OTHER, SELFPAY ==
--- NOTE | ~2021-12-20 | MM_ITS ---
EXAMINATION: MM DIAGNOSTIC DIGITAL MAMMOGRAPHY, RIGHT CLINICAL INFORMATION: Recall from screening for calcifications upper outer right breast. COMPARISON: Mammography: 12/09/2021, 08/19/2020, 08/11/2020, 08/06/2019 TECHNIQUE: Digital mammography is performed in the following views: Magnification CC, magnification ML. FINDINGS: There are scattered areas of fibroglandular density (ACR BI-RADS breast composition Category b). The additional magnification views confirm 2 tight groups of new round calcifications posterior upper outer right breast. They have a probable benign appearance and will be reassessed again in 6 months. Results are provided to the patient at time of visit by the technologist. MM/MM added views RT IMPRESSION: There are 2 new tight groups of probable benign round calcifications posterior upper outer right breast. ASSESSMENT: BI-RADS 3: Probably Benign RECOMMENDATION: Diagnostic right mammography in 6 months. This patient's information was entered into a reminder system with a target due date for their next mammogram.
== END 2021-12-20 13:54 | disposition home or self-care (01) ==
LOC: HO.MAMMO 13:53
PROVIDERS: PCP Nurse Practitioner Family; Visit Provider Nurse Practitioner Family
DX: R92.1 Mammographic calcification found on diagnostic imaging of breast (principal)
CPT/HCPCS: 77065

== ENCOUNTER 2022-01-25 07:27 | Outpatient (REF) | payer OTHER, SELFPAY ==
--- NOTE | ~2022-01-25 | US_ITS ---
EXAMINATION: US PELVIS, LIMITED/FOLLOW UP CLINICAL INFORMATION: Abdominal wall, pain area. COMPARISON: None TECHNIQUE: Limited ultrasound imaging through the abdominal wall is performed. FINDINGS: There is no visible mass, free fluid or increased vascularity in the area of anterior abdominal wall there is was performed. A prominent vessel, nonspecific seen in the left lower quadrant in the area of pain where patient complains the most.. US/US pelvic limited IMPRESSION: Grossly unremarkable limited abdomen ultrasound where patient complains of pain.
== END 2022-01-25 07:28 | disposition home or self-care (01) ==
LOC: HO.US 07:27
PROVIDERS: Visit Provider Physician Assistant Medical
DX: R10.32 Left lower quadrant pain (principal)
CPT/HCPCS: 76857

== ENCOUNTER 2022-06-02 13:38 | Outpatient (REF) | payer OTHER, SELFPAY ==
[2022-06-02 16:23] LABS: MANUAL DIFF FLAG NO
[2022-06-02 16:27] LABS: Appearance Urine Clear; Color Urine Yellow; Glucose Urine UA Negative (Negative); Leukocyte Esterase Urine Negative (Negative); Nitrite Urine Negative (Negative); PH 5.5 (5.0-9.0); Specific Gravity - Urine <= 1.005 (1.005-1.025); Urine Blood Negative (Negative); Urine Ketones Negative (Negative); Urine Protein Negative (Neg-Trace)
[2022-06-02 16:30] LABS: Basophils Absolute Auto 0.1 X10*3/uL (0.0-0.2); Basophils Percent Auto 0.6 % (0-2); Eosinophils Absolute Auto 0.1 X10*3/uL (0.0-0.4); Eosinophils Percent Auto 1.5 % (0-4); Hematocrit 39.7 % (37.0-47.0); Hemoglobin 13.3 g/dl (12.0-16.0); Imm Gran Abs Auto 0.03 X10*3/uL (0.00-0.03); Imm Gran Pct Auto 0.3 % (0.0-0.4); Mean Corpuscular HGB Conc 33.5 g/dl (31.0-35.0); Mean Corpuscular Volume 89.6 fL (80.0-98.0); Mean Platelet Volume 11.4 fL (9.4-12.3); Monocytes Absolute Auto 0.8 X10*3/uL (0.1-1.2); Monocytes Percent Auto 8.4 % (2-11); Neutrophils Absolute Auto 5.3 x10*3/uL (2.0-8.3); Neutrophils Percent Auto 57.2 % (45-73); Platelet Count 275 X10*3/uL (160-400); Red Blood Count 4.43 X10*6/uL (4.20-5.50); White Blood Count 9.3 X10*3/uL (4.8-10.8)
[2022-06-02 16:39] LABS: Alanine Aminotransferase 51 U/L (0-31); Albumin Level 4.5 g/dL (3.5-5.0); Alkaline Phosphatase 86 U/L (39-117); Aspartate Amino Transferase 37 U/L (5-31); Bilirubin Direct 0.4 mg/dL (0.0-0.5); Bilirubin Total 0.9 mg/dL (0.0-1.0); Total Protein 7.5 g/dL (6.5-8.0)
[2022-06-02 16:40] LABS: Alanine Aminotransferase 51 U/L (0-31); Albumin Level 4.5 g/dL (3.5-5.0); Alkaline Phosphatase 86 U/L (39-117); Anion Gap 19 (12-20); Aspartate Amino Transferase 36 U/L (5-31); Bilirubin Total 0.9 mg/dL (0.0-1.0); Blood Urea Nitrogen 14 mg/dL (9-16); Calcium 9.7 mg/dL (8.4-10.2); Carbon Dioxide 21 mmol/L (22-29); Chloride 100 mmol/L (96-108); Cholesterol 194 mg/dL; Estimated Glomerular Filt Rate > 60; Glucose Fasting 80 mg/dL (60-99); HDL Cholesterol 62 mg/dL; LDL Cholesterol Calculated 105 mg/dl; Potassium 3.8 mmol/L (3.3-5.1); Sodium 136 mmol/L (135-145); Total Protein 7.5 g/dL (6.5-8.0); Triglycerides 138 mg/dL
[2022-06-02 17:01] LABS: TSH reflex Free T4 2.95 uIU/mL (0.32-4.0)
== END 2022-06-02 13:39 | disposition home or self-care (01) ==
LOC: HO.HMGCLDS 13:38
PROVIDERS: Absent Provider Physician Assistant Medical; PCP Nurse Practitioner Family; Visit Provider Nurse Practitioner Family
DX: L40.0 Psoriasis vulgaris (principal); L30.8 Other specified dermatitis; E78.5 Hyperlipidemia, unspecified; Z79.899 Other long term (current) drug therapy
CPT/HCPCS: 36415; 80053; 80061; 80076; 81003; 82248; 84443; 85025

== ENCOUNTER 2022-06-27 14:45 | Outpatient (REF) | payer OTHER, SELFPAY ==
--- NOTE | ~2022-06-27 | MM_ITS ---
EXAMINATION: MM DIAGNOSTIC DIGITAL BREAST TOMOSYNTHESIS, RIGHT CLINICAL INFORMATION: Short interval six-month follow-up probable benign calcifications posterior upper outer right breast. The lifetime risk of breast cancer based on the Tyrer-Cuzick Model is 12%. COMPARISON: Mammography: 12/20/2021, 12/09/2021 (BI-RADS 0), 08/19/2020, 08/11/2020 TECHNIQUE: Digital breast tomosynthesis is performed in both the craniocaudal and mediolateral oblique views along with computer-aided detection (CAD). Synthesized 2D images are generated from the tomosynthesis. Additional magnification right CC and magnification right ML views are obtained. FINDINGS: There are scattered areas of fibroglandular density (ACR BI-RADS breast composition Category b). Parenchymal pattern is similar to prior studies. There is no interval mass or architectural abnormality or developing density. The axilla and skin contours are unremarkable. The small round calcifications for follow-up posterior upper outer right breast are slightly decreased. There are no increasing calcifications or ductal distribution. Calcifications will be reassessed again at time of annual bilateral mammography, due in 6 months. Results are provided to the patient at time of visit by the technologist. MM/MM tomosynthesis diagnostic RT IMPRESSION: -Fine round calcifications posterior upper outer right breast appear decreased. No significant change. -No mammographic evidence of malignancy. ASSESSMENT: BI-RADS 3: Probably Benign RECOMMENDATION: Diagnostic mammography at time of annual bilateral exam, due in 6 months. This patient's information was entered into a reminder system with a target due date for their next mammogram.
== END 2022-06-27 14:46 | disposition home or self-care (01) ==
LOC: HO.MAMMO 14:45
PROVIDERS: PCP Nurse Practitioner Family; Visit Provider Nurse Practitioner Family
DX: R92.1 Mammographic calcification found on diagnostic imaging of breast (principal)
CPT/HCPCS: 77061; 77065

== ENCOUNTER 2022-12-02 10:47 | Outpatient (REF) | payer OTHER, SELFPAY ==
[2022-12-02 13:25] LABS: MANUAL DIFF FLAG NO
[2022-12-02 13:30] LABS: Basophils Absolute Auto 0.1 X10*3/uL (0.0-0.2); Basophils Percent Auto 0.7 % (0-2); Eosinophils Absolute Auto 0.2 X10*3/uL (0.0-0.4); Eosinophils Percent Auto 2.3 % (0-4); Hematocrit 43.9 % (37.0-47.0); Hemoglobin 14.3 g/dl (12.0-16.0); Imm Gran Abs Auto 0.02 X10*3/uL (0.00-0.03); Imm Gran Pct Auto 0.3 % (0.0-0.4); Lymphocytes Absolute Auto 2.5 X10*3/uL (1.2-4.9); Lymphocytes Percent Auto 34.9 % (20-40); Mean Corpuscular HGB Conc 32.6 g/dl (31.0-35.0); Mean Corpuscular Hemoglobin 29.7 pg (27.0-33.0); Mean Corpuscular Volume 91.1 fL (80.0-98.0); Mean Platelet Volume 10.7 fL (9.4-12.3); Monocytes Absolute Auto 0.7 X10*3/uL (0.1-1.2); Monocytes Percent Auto 9.8 % (2-11); Neutrophils Absolute Auto 3.8 x10*3/uL (2.0-8.3); Platelet Count 277 X10*3/uL (160-400); Red Blood Count 4.82 X10*6/uL (4.20-5.50); Red Cell Distribution Width 13.2 % (11.0-16.0); White Blood Count 7.2 X10*3/uL (4.8-10.8)
[2022-12-02 13:31] LABS: Appearance Urine Clear; Color Urine Yellow; Glucose Urine UA Negative (Negative); Leukocyte Esterase Urine Small (1+) (Negative); Nitrite Urine Negative (Negative); Specific Gravity - Urine 1.015 (1.005-1.025); UMIC TRIGGER UACC YES; Urine Blood Negative (Negative); Urine Ketones Negative (Negative); Urine Protein Negative (Neg-Trace)
[2022-12-02 13:40] LABS: Bacteria Urine Trace (None Seen); Hyaline Casts Urine 0-2 /LPF (0-2); RBC Urine 0-2 /HPF (0-2); Squamous Epithelial Cell Urine 0-2 /HPF (0-2); UACC Culture Trigger YES; WBC Urine 0-5 /HPF (0-5)
[2022-12-02 13:47] LABS: Alanine Aminotransferase 84 U/L (0-31); Albumin Level 4.4 g/dL (3.5-5.0); Alkaline Phosphatase 84 U/L (39-117); Anion Gap 14 (12-20); Aspartate Amino Transferase 74 U/L (5-31); Bilirubin Total 0.9 mg/dL (0.0-1.0); Blood Urea Nitrogen 9 mg/dL (9-16); Calcium 9.9 mg/dL (8.4-10.2); Carbon Dioxide 28 mmol/L (22-29); Chloride 104 mmol/L (96-108); Cholesterol 203 mg/dL; Estimated Glomerular Filt Rate > 60; Glucose Fasting 92 mg/dL (60-99); HDL Cholesterol 64 mg/dL; LDL Cholesterol Calculated 115 mg/dl; Potassium 4.7 mmol/L (3.3-5.1); Sodium 141 mmol/L (135-145); Total Protein 7.4 g/dL (6.5-8.0); Triglycerides 120 mg/dL
[2022-12-02 14:01] LABS: TSH reflex Free T4 2.97 uIU/mL (0.32-4.0); Vitamin D 25-OH Total 54.2 ng/mL (>30)
== END 2022-12-02 10:48 | disposition home or self-care (01) ==
LOC: HO.HMGCLDS 10:47
PROVIDERS: PCP Nurse Practitioner Family; Visit Provider Nurse Practitioner Family
DX: Z00.00 Encounter for general adult medical examination without abnormal findings (principal); Z78.0 Asymptomatic menopausal state
CPT/HCPCS: 36415; 80053; 80061; 81001; 82306; 84443; 85025; 87086

== ENCOUNTER 2023-01-13 12:20 | Outpatient (REF) | payer OTHER, SELFPAY | END 2023-01-13 12:21 | disposition home or self-care (01) | LOC: HO.HMGCLDS 12:20 | PROVIDERS: PCP Nurse Practitioner Family; Visit Provider Nurse Practitioner Family | DX: Z13.89 Encounter for screening for other disorder (principal) ==

== ENCOUNTER 2023-12-03 13:56 | Outpatient (AMB) | payer OTHER, SELFPAY ==
--- NOTE | 2023-12-03 13:59 | MHC.PC.OV ---
Vital Signs 12/03/23 14:02 Height 5 ft 6 in Weight 202 lb BMI 32.6 BP 122/76 Blood Pressure Location Rt brachial Position Sitting Pulse 76 Pulse Source Pulse Oximeter Pulse Oximetry (%) 98 Oxygen Delivery Method Room Air Intake Visit Reasons: PE Intake Note: Patient here for physical exam. Mammo: 2021 Allergies No Known Allergies [No Known Allergies*] Allergy (Verified 12/03/23 14:05) Medication List - Last Reconciled 12/03/23 by MERRITT Swift apremilast (Otezla) 30 mg PO BID atorvastatin 20 mg PO BEDTIME milk thistle 450 mg PO DAILY omeprazole 20 mg PO DAILY 90 days vit C,S-Dw-ptfbw-lutein-zeaxan 250-90-40-1 mg (PreserVision AREDS-2) 1 tab PO BID vitamin B complex 1 tab PO DAILY Tobacco use date assessed: 12/03/23 Dental Screening Dental Screen Date: 12/03/23 Did you have a dental visit in the last 12 months?: Yes Did you have a dental problem in the last 6 months where you did not have access to dental care?: No Was dental information given to patient?: Patient has dentist HPI PE HPI Details Pt is here for a PE. Will order labs. Cologuard is up to date. Pt does not have a superintendent stevedoring, will refer, pt requested [facility]. Due for mammo, will order. [facility] Medical History Increased BMI Snoring EtOH dependence Arthritis Elevated liver enzymes Heart murmur GERD (gastroesophageal reflux disease) Old complete ACL tear Medial meniscus tear Surgical History S/P arthroscopic partial medial meniscectomy History of hernia repair History of section Family History Father No problems noted. Mother Unknown family medical history Sister No problems noted. Sister No problems noted. Sister No problems noted. Daughter No problems noted. 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 Cognitive needs: No Hearing needs: No Vision needs: No Questionnaire Thrive Questionnaire Date Thrive assessed: 11/23/22 ASHLEIGH-7 AMB Questionnaire ASHLEIGH-7 Date ASHLEIGH - 7 assessed: 11/23/22 Source: Developed by Drs. Phillip Karimi, Elodia Perry, Odilon Noonan and colleagues, with an educational rae from [employer]. Review of Systems Const Denies chills and Denies fever(s) Eyes Denies blurry vision ENT Denies vertigo, Denies dizziness and Denies sore throat Card Denies chest pain at rest, Denies chest pain with activity, Denies diaphoresis, Denies dyspnea and Denies dyspnea on exertion Resp Denies cough, Denies dyspnea, Denies dyspnea on exertion and Denies wheezing GI Denies abdominal pain, Denies melena, Denies hematochezia, Denies constipation, Denies diarrhea and Denies loose stools Denies hematuria Musc Denies numbness and Denies tingling Skin/Breast Denies lesions Neuro Denies vertigo, Denies dizziness, Denies numbness and Denies tingling Psych Denies anxiety, Denies depression, Denies homicidal ideation, Denies suicidal ideation and Denies other (substance abuse) Aller/Immun Denies wheezing Physical exam (Primary Care) Vital Signs: Last Vital Signs Pulse 76 12/03/23 14:02 BP 122/76 12/03/23 14:02 Pulse Ox 98 12/03/23 14:02 Oxygen Delivery Method Room Air 12/03/23 14:02 BMI result Body Mass Index 32.6 Tobacco/Smoking Status: Tobacco use Status Tobacco use date assessed 12/03/23 12/03/23 14:13 Patient Tobacco Use Status Former Tobacco user 12/03/23 14:00 e-Cigarette/Vaping Use Never Used 12/03/23 14:00 Thrive Assessment: Date of Thrive Assessment Date Thrive assessed 11/23/22 12/03/23 14:00 Const General: cooperative Nutritional Appearance: obese Orientation/consciousness: patient oriented x3 HENMT Head: Yes normal to inspection, Yes normocephalic and Yes atraumatic Ears: TM's normal bilaterally Eyes General: appearance normal, both eyes and all related structures Alignment and Position: alignment normal and position normal Neck Neck: Yes normal visual inspection and Yes no lymphadenopathy Thyroid: Thyroid normal Resp Effort & Inspection: normal respiratory effort Auscultation: clear to auscultation bilaterally Cardio Rate: regular rate Rhythm: regular rhythm Heart sounds: S1 normal heart sound present, S2 normal heart sound present and Murmur heart sound present systolic GI Palpation (GI): Soft to palpation and nontender Auscultation: normal bowel sounds Skin Rashes: no rashes Neuro General: patient oriented x3, moves all extremities, no focal motor deficits and deep tendon reflexes 2+ bilaterally Romberg Test: Negative Psych Appearance: grossly normal Mental Status: mental status grossly normal Speech and movement: Normal speech and movement present Affect: normal affect Attitude: cooperative Thought process: Normal thought process present Thought content: Normal thought content present Insight: Good insight present (Psych) Judgement: Good judgement present (Psych) Assessment and Plan Assessment & Plan (1) Physical exam: Code(s): Z00.00 - Encounter for general adult medical examination without abnormal findings Plan: Labs ordered (2) Screening for cervical cancer: Code(s): Z12.4 - Encounter for screening for malignant neoplasm of cervix Plan: Referred to superintendent stevedoring Plan The patient agreed to the use of a dental assistant medical assistant for this encounter. Scribed for MERRITT Covarrubias by Steff Gil dental assistant medical assistant, on 12/03/2023 at 14:20 EST. Orders: Orders Complete Blood Count Auto Diff Today Z00.00 - Encounter for general adult medical examination without abnormal findings Comprehensive [place]. Panel Fast Today Z00.00 - Encounter for general adult medical examination without abnormal findings MM screening mammo BI Today Z12.31 - Encounter for screening mammogram for malignant neoplasm of breast TSH reflex Free T4 Today Z00.00 - Encounter for general adult medical examination without abnormal findings UA CC w/rflx Micro + Cult Today Z00.00 - Encounter for general adult medical examination without abnormal findings Lipid Panel Today Z00.00 - Encounter for general adult medical examination without abnormal findings Referrals [facility] [employer] Referral Z12.4 - Encounter for screening for malignant neoplasm of cervix Coding Level of Care Code Est Pt Prev Care 40-64y(18972) Diagnoses Physical exam Z00.00 Screening for cervical cancer Z12.4
[2023-12-03 14:02] VITALS: BP 122/76; PULSE 76; O2SAT 98; BMI 32.6
== END 2023-12-03 16:13 | disposition home or self-care (01) ==
PROVIDERS: Visit Provider Nurse Practitioner Family
DX: Z00.00 Encounter for general adult medical examination without abnormal findings (principal); Z12.4 Encounter for screening for malignant neoplasm of cervix
CPT/HCPCS: 99396

== ENCOUNTER 2023-12-26 15:44 | Outpatient (REF) | payer OTHER, SELFPAY | END 2023-12-26 15:45 | disposition home or self-care (01) | LOC: HO.MAMMO 15:44 | PROVIDERS: PCP Nurse Practitioner Family; Visit Provider Nurse Practitioner Family | DX: Z12.31 Encounter for screening mammogram for malignant neoplasm of breast (principal) | CPT/HCPCS: 77063; 77067 ==

== ENCOUNTER → 2023-12-26 15:45 | Outpatient (BNV) | payer OTHER, SELFPAY | PROVIDERS: PCP Nurse Practitioner Family; Visit Provider Radiology Diagnostic Radiology | DX: Z12.31 Encounter for screening mammogram for malignant neoplasm of breast (principal) | CPT/HCPCS: 77063; 77067 ==

== ENCOUNTER 2024-05-31 09:59 | Outpatient (AMB) | payer OTHER, SELFPAY ==
--- NOTE | 2024-05-31 10:07 | MHC.OFFWIV ---
Intake Vital Signs 05/31/24 10:08 Height 5 ft 6 in Weight 202 lb BMI 32.6 BP 122/74 Blood Pressure Location Rt brachial Position Sitting Pulse 60 Pulse Source Pulse Oximeter Pulse Oximetry (%) 99 Intake Visit Reasons: EP/ Spots in face Intake Note: pt is here for sports on face for a few weeks, spots have redness, painful around nose area Patient Tobacco Use Status: Former Tobacco user Allergies No Known Allergies [No Known Allergies*] Allergy (Verified 05/31/24 10:16) Medication List - Last Reconciled 05/31/24 by Nadia Fowler, [employer]-BC apremilast (Otezla) 30 mg PO BID atorvastatin 20 mg PO BEDTIME milk thistle 450 mg PO DAILY omeprazole 20 mg PO DAILY 90 days vit C,F-Qi-yynop-lutein-zeaxan 250-90-40-1 mg (PreserVision AREDS-2) 1 tab PO BID vitamin B complex 1 tab PO DAILY Do you need a note to return to daycare/school/sports/work: No HPI HPI Comments History of Present Illness Details 53-year-old female here today with complaints of sores underneath her nose on top of her nose and inside her left nares that developed 2 weeks ago. She reports that she was making out with her partner who had a lot of coarse facial hair and it was shortly after this that these 2 areas developed. The area inside of her nose is described as dry cracked and mildly painful the area below her nose was scabbed. She did pick the scab off. She has no plaque psoriasis and tried applying all with the creams that she had at home without relief. She then applied some triple antibiotic ointment and this seemed to help. She denies any known history of herpes with her partner. She denies any systemic symptoms. Exam Awake alert oriented On the bridge of the nose there is an erythematous pimple like lesion without any drainage, directly underneath the nose is an open area with red base no drainage, inside the left Nares there was a dry crusted lesion Plan Discuss the differentials which would include impetigo versus herpes. Will go ahead and treat with oral antibiotics and mupirocin. Advised to avoid any friction or shear. Do not apply any additional topical treatments. If these areas do not go away or worsen she was advised that she would need to seek additional care either with her primary care provider or with a locker plant attendant. She had began to cry and was worried that she had cancer and that she was going to have to have surgery to her nose. Advised today that this does not appear to be any form of cancer. Given the sudden onset. However advised to follow up with Dermatology. This note is constructed using voice recognition software. While every effort has been made to ensure accuracy in coat tailor, still errors may have been included Sometimes, these errors may affect the content or meaning of the given sentence . Total time spent caring for the patient today was 20 minutes. This includes time spent before the visit reviewing the chart, time spent during the visit, and time spent after the visit on documentation [facility] Medical History Increased BMI Snoring EtOH dependence Arthritis Elevated liver enzymes Heart murmur GERD (gastroesophageal reflux disease) Old complete ACL tear Medial meniscus tear Surgical History S/P arthroscopic partial medial meniscectomy History of hernia repair History of section Family History Father No problems noted. Mother Unknown family medical history Sister No problems noted. Sister No problems noted. Sister No problems noted. Daughter No problems noted. 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 Cognitive needs: No Hearing needs: No Vision needs: No Physical Exam Vital Signs: Last Vital Signs Pulse 60 05/31/24 10:08 BP 122/74 05/31/24 10:08 Pulse Ox 99 05/31/24 10:08 BMI result Body Mass Index 32.6 Assessment & Plan Assessment & Plan (1) Impetigo: Code(s): L01.00 - Impetigo, unspecified Plan: . (2) Lesion of face: Code(s): L98.9 - Disorder of the skin and subcutaneous tissue, unspecified Plan: . (3) Anxiety about health: Code(s): R45.89 - Other symptoms and signs involving emotional state Plan: . Medications: New mupirocin 2% apply to affected skin and inside bilat nares three times per day 1 appl topical TID 10 days 22 grams 0RF cephalexin 500 mg PO Q12H 7 days 14 caps 0RF Coding Level of Care Code Est Pt Level 3 (00717) Diagnoses Impetigo L01.00 Lesion of face L98.9 Anxiety about health R45.89
[2024-05-31 10:08] VITALS: BP 122/74; PULSE 60; O2SAT 99; BMI 32.6
== END 2024-05-31 10:41 | disposition home or self-care (01) ==
PROVIDERS: PCP Nurse Practitioner Family; Visit Provider Nurse Practitioner Family
DX: L01.00 Impetigo, unspecified (principal); L98.9 Disorder of the skin and subcutaneous tissue, unspecified; R45.89 Other symptoms and signs involving emotional state

== ENCOUNTER → 2024-05-31 09:59 | Outpatient (BNVA) | payer OTHER, SELFPAY | PROVIDERS: PCP Nurse Practitioner Family; Visit Provider Physician Assistant | DX: L01.00 Impetigo, unspecified (principal); L98.9 Disorder of the skin and subcutaneous tissue, unspecified; R45.89 Other symptoms and signs involving emotional state | CPT/HCPCS: 99212 ==

== ENCOUNTER 2024-09-13 07:49 | Outpatient (REF) | payer OTHER, SELFPAY ==
[2024-09-13 11:20] LABS: MANUAL DIFF FLAG NO
[2024-09-13 11:28] LABS: Basophils Absolute Auto 0.1 X10*3/uL (0.0-0.2); Basophils Percent Auto 0.7 % (0-2); Eosinophils Absolute Auto 0.1 X10*3/uL (0.0-0.4); Eosinophils Percent Auto 1.4 % (0-4); Hematocrit 48.1 % (37.0-47.0); Hemoglobin 15.7 g/dl (12.0-16.0); Imm Gran Abs Auto 0.02 X10*3/uL (0.00-0.03); Imm Gran Pct Auto 0.3 % (0.0-0.4); Lymphocytes Absolute Auto 1.6 X10*3/uL (1.2-4.9); Lymphocytes Percent Auto 22.8 % (20-40); Mean Corpuscular HGB Conc 32.6 g/dl (31.0-35.0); Mean Corpuscular Hemoglobin 30.7 pg (27.0-33.0); Mean Corpuscular Volume 93.9 fL (80.0-98.0); Mean Platelet Volume 10.6 fL (9.4-12.3); Monocytes Absolute Auto 0.7 X10*3/uL (0.1-1.2); Monocytes Percent Auto 10.3 % (2-11); Neutrophils Absolute Auto 4.5 x10*3/uL (2.0-8.3); Neutrophils Percent Auto 64.5 % (45-73); Platelet Count 354 X10*3/uL (160-400); Red Blood Count 5.12 X10*6/uL (4.20-5.50); Red Cell Distribution Width 13.6 % (11.0-16.0)
[2024-09-13 11:39] LABS: Appearance Urine Clear; Color Urine Yellow; Glucose Urine UA Negative (Negative); Leukocyte Esterase Urine Trace (Negative); Nitrite Urine Negative (Negative); PH 5.5 (5.0-9.0); Specific Gravity - Urine <= 1.005 (1.005-1.025); UMIC TRIGGER UACC YES; Urine Blood Negative (Negative); Urine Ketones Negative (Negative); Urine Protein Negative (Neg-Trace)
[2024-09-13 11:45] LABS: Bacteria Urine None Seen (None Seen); Hyaline Casts Urine 0-2 /LPF (0-2); RBC Urine 0-2 /HPF (0-2); Squamous Epithelial Cell Urine 0-2 /HPF (0-2); WBC Urine 0-5 /HPF (0-5)
[2024-09-13 11:46] LABS: Alanine Aminotransferase 249 U/L (0-31); Albumin Level 4.7 g/dL (3.5-5.0); Alkaline Phosphatase 107 U/L (39-117); Anion Gap 16 (12-20); Aspartate Amino Transferase 190 U/L (5-31); Bilirubin Total 0.9 mg/dL (0.0-1.0); Blood Urea Nitrogen 10 mg/dL (9-16); Calcium 10.3 mg/dL (8.4-10.2); Carbon Dioxide 24 mmol/L (22-29); Chloride 103 mmol/L (96-108); Cholesterol 199 mg/dL (<200); Estimated Glomerular Filt Rate > 60; Glucose Fasting 99 mg/dL (60-99); HDL Cholesterol 66 mg/dL (>40); LDL Cholesterol Calculated 116 mg/dL (<100); Potassium 3.9 mmol/L (3.3-5.1); Sodium 139 mmol/L (135-145); Triglycerides 87 mg/dL (<150)
[2024-09-13 12:05] LABS: TSH reflex Free T4 2.56 uIU/mL (0.32-4.0)
== END 2024-09-13 07:50 | disposition home or self-care (01) ==
LOC: HO.HMGCLDS 07:49
PROVIDERS: PCP Nurse Practitioner Family; Visit Provider Nurse Practitioner Family
DX: Z00.00 Encounter for general adult medical examination without abnormal findings (principal)
CPT/HCPCS: 36415; 80053; 80061; 81001; 84443; 85025

== ENCOUNTER 2024-12-30 13:05 | Outpatient (AMB) | payer OTHER, SELFPAY ==
[2024-12-30 13:11] VITALS: BP 120/78; PULSE 66; O2SAT 100; BMI 31.1
--- NOTE | 2024-12-30 13:11 | MHC.PC.OV ---
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 Boarding Required: No Accompanied by: Self / Same As Patient Allergies No Known Allergies [No Known Allergies*] Allergy (Verified 12/30/24 13:56) Medication List - Last Reconciled 12/30/24 by MERRITT Swift apremilast (Otezla) 30 mg PO BID atorvastatin 20 mg PO BEDTIME milk thistle 450 mg PO DAILY mupirocin 2% 1 appl topical TID 10 days omeprazole 20 mg PO DAILY 90 days vit C,V-Je-otuxz-lutein-zeaxan 250-90-40-1 mg (PreserVision AREDS-2) 1 tab PO BID vitamin B complex 1 tab PO DAILY Tobacco use date assessed: 12/30/24 Dental Screening Dental Screen Date: 12/30/24 Did you have a dental visit in the last 12 months?: Yes Did you have a dental problem in the last 6 months where you did not have access to dental care?: No Was dental information given to patient?: Patient has dentist HPI PE HPI Details History of Present Illness The patient is a 54-year-old female presenting for a routine physical examination and health maintenance. Her previous mammogram was completed a year ago, which I will verify. Current screenings, including Cologuard, are up to date. The patient reports alcohol use, correlating with elevated liver enzymes discovered during previous testing. She is aware of the harmful effects of alcohol on health and has been trying non-alcoholic beverages as alternatives. Obesity remains a significant issue for her health management. Health Maintenance - Mammogram conducted approximately one year ago; requires follow-up to obtain results. - Cologuard screening is current. - Discussion on alternatives to alcohol to help manage elevated liver enzyme levels. - Monitoring weight and encouraging healthy lifestyle choices due to obesity concerns. Social History - Alcohol use, with elevated liver enzymes noted. Patient is exploring non-alcoholic alternatives. - Obesity acknowledged as a chronic condition affecting health status. Review of Systems - Cardiovascular: Reports no specific symptoms; denies chest pain but has a faint systolic murmur. - Gastrointestinal: Reports current alcohol use and elevated liver enzymes. - General: Obesity noted. Physical Exam General: Cooperative, healthy appearing, comfortable, no acute distress and well developed, obese Orientation: Patient oriented x3 Limitations: No limitations Head: Normal to inspection Ears: Hearing grossly normal bilaterally Nose: Normal external nose present Face and sinus: Normal facial exam Eyes: Appearance normal, both eyes and all related structures Neck: Normal visual inspection and Yes full ROM Respiratory: Normal respiratory effort and able to speak in complete sentences. Clear to auscultation bilaterally Cardiovascular: Regular rate and rhythm. Normal S1 and S2. Faint systolic murmur present GI: Normal to inspection. Soft to palpation and nontender Skin: No rashes or lesions noted Neuro: Patient oriented x3 Extremities: Normal to inspection Results Plan During this visit, I reviewed the patient's mammogram history and plan to obtain the result, as it has been approximately a year since the last one. Her Cologuard screening is current. To address the alcohol use and elevated liver enzymes, I am ordering an abdominal ultrasound. Additionally, I will recheck her liver enzymes and conduct hepatitis screenings in a follow-up laboratory assessment. I discussed nonalcoholic alternatives with the patient, which she is considering. Obesity remains a concern, which I addressed by discussing long-term weight management strategies. Lastly, the faint systolic murmur noted will be monitored in upcoming visits. Discussion Notes I discussed with the patient the importance of obtaining her mammogram results for continued breast cancer screening, as it has been approximately one year since the last one. Her Cologuard test is current, which is beneficial for colon cancer prevention. We explored her alcohol use and its implications on her liver, emphasizing the elevation in her liver enzymes. I discussed the benefits and risks of conducting an abdominal ultrasound and rechecking her labs for better monitoring and management of her liver health. The patient was receptive to exploring nonalcoholic alternatives as a step towards reducing her alcohol consumption. I highlighted weight management strategies as part of addressing obesity. The patient is informed of the findings of a faint systolic murmur and the importance of monitoring it. I advised follow-up appointments and re-evaluation in the subsequent visit. Patient Instructions - I will follow up on your latest mammogram results. - Continue with your Cologuard screenings as advised. - Consider nonalcoholic alternatives to manage liver health. - Expect a call for blood work to check liver enzymes and more screenings. - Plan for a future visit to monitor weight and address obesity. - Report any new symptoms or changes in your health, especially concerning any heart-related symptoms. [facility] Medical History (Updated 12/30/24 @ 13:56 by MERRITT Swift) Increased BMI Snoring EtOH dependence Arthritis Elevated liver enzymes Heart murmur GERD (gastroesophageal reflux disease) Old complete ACL tear Medial meniscus tear Surgical History S/P arthroscopic partial medial meniscectomy History of hernia repair History of section Family History Father No problems noted. Mother Unknown family medical history Sister No problems noted. Sister No problems noted. Sister No problems noted. Daughter No problems noted. 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 Cognitive needs: No Hearing needs: No Vision needs: No Questionnaire PHQ-9 Over the last 2 weeks, how often have you been bothered by any of the following problems? 1. Little interest or pleasure in doing things: not at all 2. Feeling down, depressed, or hopeless: not at all 3. Trouble falling or staying asleep, or sleeping too much: not at all 4. Feeling tired or having little energy: not at all 5. Poor appetite or overeating: not at all 6. Feeling bad about yourself - or that you are a failure or have let yourself or your family down: not at all 7. Trouble concentrating on things, such as reading the newspaper or watching television: not at all 8. Moving or speaking so slowly that other people could have noticed. Or the opposite - being so fidgety or restless that you have been moving around a lot more than usual: not at all 9. Thoughts that you would be better off or of hurting yourself in some way: not at all Total score: 0 Depression Screening Interpretation: Negative Depression Screening Done: Yes 94917 - PHQ-9 Billing: Yes Source: Developed by Drs. Phillip Karimi, Elodia Perry, Odilon Noonan and colleagues, with an educational rae from [employer]. Thrive Questionnaire Date Thrive assessed: 12/30/24 I am a: Patient What is your living situation today?: I have a steady place to live Within the past 12 months, did the food you bought not last and you didn't have the money to get more?: Never true Within the past 12 months, did you worry whether your food would run out before you got money to buy more?: Never true Do you have trouble paying for medicines?: No Do you have trouble getting transportation to medical appointments?: No Do you have trouble paying your heating and electricity bill?: No Do you have trouble taking care of your child, family member or friend?: No Do you have trouble with day-to-day activities such as bathing, preparing meals, shopping, managing finances, etc.?: No Are you currently unemployed and looking for a job?: No Are you interested in more education?: No Please select the resources that you would like help with: None Currently or been in a relationship where the following occur: No concerns reported THRIVE Score: 0 AUDIT C Alcohol Use Questionnaire (AUDIT-C) 1. How often do you have a drink containing alcohol?: 2-3 times a week 2. How many drinks containing alcohol do you have on a typical day when you are drinking?: 3 or 4 3. How often do you have six or more drinks on one occasion?: Less than monthly Total Score: 5 Score Reviewed/Action Taken: Yes ASHLEIGH-7 AMB Questionnaire ASHLEIGH-7 Date ASHLEIGH - 7 assessed: 12/30/24 Feeling nervous, anxious, or on edge: 0 = Not at all Not being able to stop or control worryin = Not at all Worrying too much about different things: 0 = Not at all Trouble relaxin = Not at all Being so restless that it is hard to sit still: 0 = Not at all Becoming easily annoyed or irritable: 0 = Not at all Feeling afraid as if something awful might happen: 0 = Not at all Total ASHLEIGH-7 score (0-4 normal; 5-9 mild; 10-14 moderate; 15-21 severe): 0 Source: Developed by Drs. Phillip Karimi, Elodia Perry, Odilon Noonan and colleagues, with an educational rae from [employer]. ASHLEIGH-7 Assessment Billing ASHLEIGH-7 Assessment Tool: ASHLEIGH-7 Assessment 08797 Physical exam (Primary Care) Vital Signs: Last Vital Signs Pulse 66 12/30/24 13:11 BP 120/78 12/30/24 13:11 Pulse Ox 100 12/30/24 13:11 Oxygen Delivery Method Room Air 12/30/24 13:11 BMI result Body Mass Index 31.1 Tobacco/Smoking Status: Tobacco use Status Tobacco use date assessed 12/30/24 12/30/24 13:13 Patient Tobacco Use Status Former Tobacco user 12/30/24 13:13 e-Cigarette/Vaping Use Never Used 12/30/24 13:13 PHQ-9: PHQ-9 Score PHQ-9: Total score 0 12/30/24 13:13 Depression Screening Interpretation: Negative Thrive Assessment: Date of Thrive Assessment Date Thrive assessed 12/30/24 12/30/24 13:13 Currently or been in a relationship where the following occur: No concerns reported Coding Level of Care Code Est Pt Prev Care 40-64y(76847) Diagnoses Physical exam Z00.00 Screening for cervical cancer Z12.4 Post-menopausal Z78.0 Encounter for routine adult physical exam with abnormal findings Z00.01 Elevated liver enzymes R74.8 EtOH dependence F10.20 Additional Codes ASHLEIGH-7 Assessment Billing - ASHLEIGH-7 Assessment Tool: ASHLEIGH-7 Assessment 66089 ([id number]) PHQ-9 - 88775 - PHQ-9 Billing: Yes ([id number]) Assessment & Plan Assessment & Plan (1) Physical exam: Code(s): Z00.00 - Encounter for general adult medical examination without abnormal findings Category: Medical (2) Screening for cervical cancer: Code(s): Z12.4 - Encounter for screening for malignant neoplasm of cervix Category: Medical (3) Post-menopausal: Code(s): Z78.0 - Asymptomatic menopausal state Category: Medical (4) Encounter for routine adult physical exam with abnormal findings: Code(s): Z00.01 - Encounter for general adult medical examination with abnormal findings Category: Medical (5) Post-menopausal: Code(s): Z78.0 - Asymptomatic menopausal state Category: Medical (6) Elevated liver enzymes: Code(s): R74.8 - Abnormal levels of other serum enzymes Category: Medical (7) EtOH dependence: Code(s): F10.20 - Alcohol dependence, uncomplicated Category: Medical Plan . Orders: Orders Complete Blood Count Auto Diff Today Z00.01 - Encounter for general adult medical examination with abnormal findings Comprehensive [place]. Panel Fast Today Z00.01 - Encounter for general adult medical examination with abnormal findings TSH reflex Free T4 Today Z00.01 - Encounter for general adult medical examination with abnormal findings Hepatitis A,B,C Profile Today R74.8 - Abnormal levels of other serum enzymes UA CC w/rflx Micro + Cult Today Z00.01 - Encounter for general adult medical examination with abnormal findings Lipid Panel Today Z00.01 - Encounter for general adult medical examination with abnormal findings Vitamin D 25-OH Total Today Z78.0 - Asymptomatic menopausal state Referrals [employer] Referral Z12.4 - Encounter for screening for malignant neoplasm of cervix, Z78.0 - Asymptomatic menopausal state
== END 2024-12-30 13:54 | disposition home or self-care (01) ==
LOC: HO.HMCC 13:05
PROVIDERS: PCP Nurse Practitioner Family; Visit Provider Nurse Practitioner Family
DX: Z00.00 Encounter for general adult medical examination without abnormal findings (principal); R74.8 Abnormal levels of other serum enzymes; F10.20 Alcohol dependence, uncomplicated; Z78.0 Asymptomatic menopausal state

== ENCOUNTER → 2024-12-30 13:05 | Outpatient (BNVA) | payer OTHER, SELFPAY | PROVIDERS: PCP Nurse Practitioner Family; Visit Provider Nurse Practitioner Family | DX: Z00.01 Encounter for general adult medical examination with abnormal findings (principal); E66.9 Obesity, unspecified; R74.8 Abnormal levels of other serum enzymes; F10.20 Alcohol dependence, uncomplicated; Z68.31 Body mass index [BMI] 31.0-31.9, adult; Z78.0 Asymptomatic menopausal state | CPT/HCPCS: 96127; 99396 ==